=== PATIENT | female | born 1980 | race Hispanic/Latino ===

== ENCOUNTER 2018-06-20 16:19 | Emergency (ER) | payer MEDICAID ==
[2018-06-20 16:39] VITALS: RESP 18
[2018-06-20 17:07] LABS: BASO % 0.6 % (0.0-2.0); EOS # 0.1 K/uL (0.0-0.7); EOS % 1.4 % (0.0-4.0); LYMPH # 2.4 K/uL (1.0-4.3); LYMPH % 26.5 % (20.0-40.0); MEAN CELL VOLUME 86.8 fL (81.0-99.0); MEAN CORPUSCULAR HEMOGLOBIN 29.6 pg (27.0-31.0); MEAN CORPUSCULAR HGB CONC 34.1 g/dL (33.0-37.0); MEAN PLATELET VOLUME 9.6 fL (7.2-11.7); MONO # 0.7 K/uL (0.0-0.8); MONO % 7.3 % (0.0-10.0); NEUT # 5.8 K/uL (1.8-7.0); NEUT % 64.2 % (50.0-75.0); RBC 4.44 Mil/uL (3.80-5.20); RED CELL DISTRIBUTION WIDTH 13.5 % (11.5-14.5)
[2018-06-20 17:11] LABS: HEMOGLOBIN 13.1 g/dL (11.0-16.0)
[2018-06-20 17:23] LABS: SQUAMOUS EPITHIAL < 1 /hpf (0-5); URINE BACTERIA RARE (<OCC); URINE BILIRUBIN NEGATIVE (NEGATIVE); URINE BLOOD NEGATIVE (NEGATIVE); URINE CLARITY Clear (Clear); URINE COLOR Yellow (YELLOW); URINE GLUCOSE (UA) NORMAL (Normal); URINE LEUKOCYTE ESTERASE NEG Leu/uL (Negative); URINE PROTEIN NEGATIVE (NEGATIVE); URINE UROBILINOGEN NORMAL mg/dL (0.2-1.0)
[2018-06-20 17:24] LABS: ALT/SGPT 19 U/L (9-52); AST/SGOT 26 U/L (14-36); BLOOD UREA NITROGEN 14 mg/dL (7-17); CALCIUM 8.9 mg/dl (8.6-10.4); GFR NON-AFRICAN AMERICAN > 60; LIPASE 41 U/L (23-300)
[2018-06-20 17:58] LABS: ALBUMIN 4.1 g/dL (3.5-5.0)
[2018-06-20 18:04] LABS: ALB/GLOB RATIO 1.5 (1.0-2.1)
--- NOTE | 2018-06-20 18:26 | US ---
Date of service: 06/20/2018 PROCEDURE: First trimester ultrasound HISTORY: vaginal bleeding - unknown LMP COMPARISON: None TECHNIQUE: Standard protocol for this study/examination. FINDINGS: LMP: Unknown Prior examinations from the current : None TECHNIQUE: Real-time 2D imaging, duplex and color Doppler. FINDINGS: Cardiac activity: Present Rate: 118 BPM Measurements: [place] rump length: 0.36 cm Gestational age based on CRL 6 weeks Gestational age 6 weeks 2 days based on gestational sac measurement 1.82 cm Gestational age derived from LMP: Cannot be ascertained based in the absence of a reliable/ known LMP FAMILIA based on LMP: Cannot be ascertained based in the absence of a reliable/ known LMP FAMILIA based on biometry: 02/12/2019 Yolk sac identified Cervix: No Cervical abnormalities: Negative examination for cervical dilatation or effacement. Closed cervix measuring 3.12 cm Subchorionic hemorrhage: None UTERUS: 5.3 x 6.3 x 9.1 cm. ADNEXA: Right: 2.95 x 3 x 3 cm. Normal Doppler arterial waveform documented. Left: 1.5 x 1.9 x 2.1 cm. Normal Doppler arterial waveform documented Fluid in the cul-de-sac: IMPRESSION: 6 weeks 1 day live intrauterine gestation. Gestational concordance cannot be ascertained in the absence of reliable LMP.
--- NOTE | 2018-06-20 18:45 | C.PDOC ---
History Of Present Illness 38 y/o female, , presents to the ED complaining of vaginal spotting for the past few days. Reports she took a home test which was positive. Denies any vaginal discharge, nausea, vomiting, fever, or chills. Patient is complaining of minimal lower abdominal pain. Otherwise she is eating and drinking well. LMP was approximately 7 weeks ago. Time Seen by Provider: 06/20/18 16:44 Chief Complaint (Nursing): Abdominal Pain History Per: Patient History/Exam Limitations: no limitations Onset/Duration Of Symptoms: Days Current Symptoms Are (Timing): Still Present Location Of Pain/Discomfort: Suprapubic Abnormal Vaginal Bleeding: Yes Past Medical History Reviewed: Historical Data, Nursing Documentation, Vital Signs Vital Signs: Last Vital Signs Temp 98.6 F 06/20/18 16:34 Pulse 80 06/20/18 16:34 Resp 18 06/20/18 16:34 BP 142/90 06/20/18 16:34 Pulse Ox 97 06/20/18 16:34 - Medical History PMH: Asthma, HTN - [facility] Procedures CERVICAL BIOPSY NEC (01/16/99) D & C NEC (01/16/99) TETANUS TOXOID ADMINIST (01/13/13) Family History: States: Unknown Family Hx - Social History Hx Tobacco Use: No Hx Alcohol Use: Yes Hx Substance Use: Yes - Immunization History Hx Tetanus Toxoid Vaccination: Yes Hx Influenza Vaccination: No Hx Pneumococcal Vaccination: No Review Of Systems Except As Marked, All Systems Reviewed And Found Negative. Constitutional: Negative for: Fever, Chills Gastrointestinal: Positive for: Abdominal Pain. Negative for: Nausea, Vomiting Genitourinary: Positive for: Vaginal Bleeding. Negative for: Dysuria, Frequency, Vaginal Discharge Skin: Negative for: Rash Physical Exam - Physical Exam Appears: Non-toxic, No Acute Distress Skin: Normal Color, Warm, Dry Head: Atraumatic, Normacephalic Eye(s): bilateral: Normal Inspection, PERRL, EOMI Oral Mucosa: Moist Neck: Normal ROM Chest: Symmetrical Cardiovascular: Rhythm Regular, No Murmur Respiratory: Normal Breath Sounds, No Accessory Muscle Use Gastrointestinal/Abdominal: Soft, No Tenderness, No Distention, No Guarding, No Rebound Back: Normal Inspection, No CVA Tenderness Extremity: Bilateral: Atraumatic, Normal Color And Temperature, Normal ROM Neurological/Psych: Oriented x3, Normal Speech ED Course And Treatment - Laboratory Results Result Diagrams: 06/20/18 17:04 06/20/18 17:04 O2 Sat by Pulse Oximetry: 97 (RA) Pulse Ox Interpretation: Normal - CT Scan/US OB Ultrasound Other Rad Studies (CT/US): Read By Radiologist, Radiology Report Reviewed CT/US Interpretation: Accession No. : [id number]. Patient Name / ID : LUIS Mobley / [id number]. Exam Date : 06/20/2018 17:36:19 ( Approved ). Study Comment : Sex / Age : F / 38Y. Creator : Jimi Celis MD. Dictator : Jimi Celis MD. Undergraduate Intern : [employer]ingle Roofer : Jimi Celis MD. Approver2 : Report Date : 06/20/2018 18:22:53. My Comment : . Date of service: 06/20/2018. PROCEDURE: First trimester ultrasound. HISTORY: vaginal bleeding - unknown LMP. COMPARISON: None. TECHNIQUE: Standard protocol for this study/examination. FINDINGS: LMP: Unknown. Prior examinations from the current : None. TECHNIQUE: Real-time 2D imaging, duplex and color Doppler. FINDINGS: Cardiac activity: Present. Rate: 118 BPM. Measurements: [place] rump length: 0.36 cm. Gestational age based on CRL 6 weeks. Gestational age 6 weeks 2 days based on gestational sac measurement 1.82 cm. Gestational age derived from LMP: Cannot be ascertained based in the ab sence of a reliable/ known LMP. FAMILIA based on LMP: Cannot be ascertained based in the absence of a reliable/ known LMP. FAMILIA based on biometry: 02/12/2019. Yolk sac identified. Cervix: No Cervical abnormalities: Negative examination for cervical dilatation or effacement. Closed cervix measuring 3.12 cm. Subchorionic hemorrhage: None. UTERUS: 5.3 x 6.3 x 9.1 cm. ADNEXA: Right: 2.95 x 3 x 3 cm. Normal Doppler arterial waveform documented. Left: 1.5 x 1.9 x 2.1 cm. Normal Doppler arterial waveform documented. Fluid in the cul-de-sac: IMPRESSION: 6 weeks 1 day live intrauterine gestation. Gestational concordance cannot be ascertained in the absence of reliable LMP. Medical Decision Making Medical Decision Making: Impression: Vaginal bleeding, abdominal cramping during Initial Plan: --CMP --Lipase --Beta-HCG --CBC --UA --Urine culture -- OB US Labs reviewed: Beta-HCG 10153 Blood work otherwise unremarkable, UA is clear. Ultrasound results discussed w/ patient, copy of report provided. Advised patient to follow up in the women's clinic or with any OB. RX for vitamin provided. Disposition Counseled Patient/Family Regarding: Studies Performed, Diagnosis, Need For Followup, Rx Given - Disposition Referrals: [facility] Kalpana Gleason, [Non-Staff] - Disposition: HOME/ ROUTINE Disposition Time: 18:30 Condition: GOOD Additional Instructions: CHALO SMITH, thank you for letting us take care of you today. The emergency medical care you received today was directed at your acute symptoms. If you were prescribed any medication, please fill it and take as directed. It may take several days for your symptoms to resolve. Return to the Emergency Department if your symptoms worsen, do not improve, or if you have any other problems. Please contact your doctor or call one of the physicians/clinics you have been referred to that are listed on the Patient Visit Information form that is included in your discharge packet. Bring any paperwork you were given at discharge with you along with any medications you are taking to your follow up visit. Our treatment cannot replace ongoing medical care by a primary care provider outside of the emergency department. Thank you for allowing the [facility] team to be part of your care today. Follow up with our OB doctor this week for re-evaluation and further management. Prescriptions: Vit No.126/Iron/Folic [Classic Tablet] 1 each PO DAILY #30 tablet Instructions: - The Second Month Forms: [employer] (Bots[place]an) - POA Present On Arrival: None - Clinical Impression Clinical Impression: Threatened - Scribe Statement The provider has reviewed the documentation as recorded by the Florina Ramirez Provider Attestation: All medical record entries made by the Scribe were at my direction and personally dictated by me. I have reviewed the chart and agree that the record accurately reflects my personal performance of the history, physical exam, medical decision making, and the department course for this patient. I have also personally directed, reviewed, and agree with the discharge instructions and disposition.
[2018-06-20 18:51] VITALS: BP 120/82; PULSE 60; TEMP 98.8
[2018-06-20 19:01] VITALS: O2SAT 97
== END 2018-06-20 18:52 | disposition home or self-care (01) ==
LOC: C.ER 16:19
DX: O20.0 Threatened abortion (principal); Z3A.01 Less than 8 weeks gestation of pregnancy